=== PATIENT | female | born 1975 | race Caucasian/White ===

== ENCOUNTER 2016-09-20 08:17 | Emergency (ER) | payer SELFPAY ==
[~2016-09-20] VITALS: Ht 157.5 cm; Wt 120.5 kg
[~2016-09-20 08:17] MED LIST: DEPOP150I IM
[2016-09-20] MEDS ORDERED: GABA-531 PO (08:28)
[2016-09-20] MEDS ORDERED: SODIUM CHLORIDE 0.9% 1,000 ML IV ONE (10:18)
[2016-09-20] MEDS ORDERED: DiphenhydrAMINE HCL 50 MG/ML VIAL IVP ONE (10:30)
[2016-09-20] MEDS ORDERED: ONDANSETRON HCL 4 MG/2 ML VIAL IVP ONE (10:30)
[2016-09-20] MEDS ORDERED: KETOROLAC TROMETHAMINE 30 MG/ML VIAL IVP ONE (10:45)
[2016-09-20 12:58] VITALS: BP 139/69
== END 2016-09-20 12:59 | disposition home or self-care (01) ==
LOC: EMS 08:18
DX: G43.909 Migraine, unspecified, not intractable, without status migrainosus (principal); E03.9 Hypothyroidism, unspecified
CPT/HCPCS: 70450; 81025; 96361; 96374; 96375; 99284; J1200; J1885; J2405; J7030

== ENCOUNTER 2017-06-14 07:49 | Emergency (ER) | payer MEDICAID ==
[~2017-06-14] VITALS: Ht 152.4 cm; Wt 125.0 kg
[~2017-06-14 07:49] MED LIST changes: -DEPOP150I IM; +GABA-531 PO
[2017-06-14] MEDS ORDERED: KETOROLAC TROMETHAMINE 60 MG/2 ML VIAL IM ONE (09:45)
[2017-06-14] MEDS ORDERED: METHOCARBAMOL 500 MG TABLET PO ONE ×2 (09:45→10:00)
[2017-06-14 14:47] VITALS: BP 118/69
== END 2017-06-14 14:48 | disposition home or self-care (01) ==
LOC: EMS 07:51
DX: S93.602A Unspecified sprain of left foot, initial encounter (principal); S80.12XA Contusion of left lower leg, initial encounter; S00.83XA Contusion of other part of head, initial encounter; R81 Glycosuria; E03.9 Hypothyroidism, unspecified; W01.0XXA Fall on same level from slipping, tripping and stumbling without subsequent striking against object, initial encounter; Y93.89 Activity, other specified; Y92.89 Other specified places as the place of occurrence of the external cause; Y99.8 Other external cause status
CPT/HCPCS: 70110; 71020; 73590; 73630; 96372; 99284; J1885